=== PATIENT | male | born 2000 | race Caucasian/White ===

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

== ENCOUNTER 2022-02-19 13:14 | Emergency (ER) | payer OTHER ==
--- NOTE | 2022-02-19 13:17 | NUR ---
no answer at this time
--- NOTE | 2022-02-19 13:24 | NUR ---
no answer at this time
--- NOTE | 2022-02-19 14:05 | NUR ---
no answer at this time. pt left before triage, lwbs
== END 2022-02-19 14:06 | disposition left against medical advice (07) ==
LOC: MED 13:14
DX: R10.9 Unspecified abdominal pain (principal); Z53.21 Procedure and treatment not carried out due to patient leaving prior to being seen by health care provider